=== PATIENT | female | born 1970 | race Caucasian/White ===

== ENCOUNTER 2022-06-12 12:06 | Outpatient (CLI) | payer OTHER | END 2022-06-12 12:07 | disposition home or self-care (01) | LOC: DTY/OP 12:06 | PROVIDERS: ATTEND Surgery | DX: Z01.818 Encounter for other preprocedural examination (principal); M19.012 Primary osteoarthritis, left shoulder; M19.011 Primary osteoarthritis, right shoulder; G47.33 Obstructive sleep apnea (adult) (pediatric); Z68.34 Body mass index [BMI] 34.0-34.9, adult; Z71.3 Dietary counseling and surveillance | CPT/HCPCS: 97802 ==

== ENCOUNTER 2022-07-11 09:53 | Outpatient (CLI) | payer BC | END 2022-07-11 09:54 | disposition home or self-care (01) | LOC: RAD 09:53 | PROVIDERS: ATTEND Surgery | DX: K21.9 Gastro-esophageal reflux disease without esophagitis (principal) | CPT/HCPCS: 74220 ==